=== PATIENT | female | born 1985 | race African-American/Black ===

== ENCOUNTER 2017-05-30 09:37 | Emergency (ER) | payer SELFPAY ==
[~2017-05-30] VITALS: Ht 172.7 cm; Wt 70.4 kg
[2017-05-30] MEDS ORDERED: KEFLEX500 MG PO (11:47)
[2017-05-30 12:23] VITALS: BP 152/99
== END 2017-05-30 12:23 | disposition home or self-care (01) ==
LOC: EME 09:37
DX: L02.416 Cutaneous abscess of left lower limb (principal)
CPT/HCPCS: 99281; 99283